=== PATIENT | female | born 1995 | race Caucasian/White ===

== ENCOUNTER 2020-12-20 13:26 | Emergency (ER) | payer BC, SELFPAY ==
--- NOTE | ~2020-12-20 | XR_ITS ---
EXAMINATION: XR finger 1st RT min 2V DATE: 12/20/2020 14:03 INDICATION: Right thumb pain and swelling. TECHNIQUE: 3 views of right thumb were obtained. COMPARISON: None. FINDINGS: Bone alignment is normal. No fracture. Joint spaces are well maintained. IMPRESSION: 1. Normal right thumb. Reviewed, dictated and finalized at location A. IMPRESSION: 1. Normal right thumb.
[2020-12-20 13:41] VITALS: BP 142/80; PULSE 82; RESP 15; TEMP 36.2; O2SAT 100
[2020-12-20 14:03] LABS: Basophils Percent Auto 0.3 % (0.2-1.2); Eosinophils Absolute Auto 0.2 K/mm3 (0-0.3); Eosinophils Percent Auto 2.2 % (0-4.4); Hematocrit 45.3 % (37.0-47.0); Hemoglobin 15.1 g/dL (12.0-15.0); Immature Granulocyte Absolute 0.02 K/mm3 (0.00-0.031); Immature Granulocyte Percent A 0.2 % (0-0.5); Lymphocytes Absolute Auto 1.55 K/mm3 (0.9-3.2); Lymphocytes Percent Auto 17.4 % (18.3-44.2); Mean Corpuscular HGB Conc 33.3 g/dl (32-36); Mean Corpuscular Hemoglobin 30.9 pg (26-34); Mean Corpuscular Volume 92.8 fl (80-100); Mean Platelet Volume 9.6 fl (7.4-10.4); Monocytes Absolute Auto 0.8 K/mm3 (0.1-0.6); Monocytes Percent Auto 8.6 % (2.6-8.5); Neutrophils Absolute Auto 6.3 K/mm3 (1.3-6.7); Neutrophils Percent Auto 71.3 % (45.5-73.1); Platelet Count Result 342 k/mm3 (150-375); Red Blood Count 4.88 M/mm3 (4.2-5.4); Red Cell Distribution Width 12.7 % (11.5-14.5); White Blood Count 8.9 K/mm3 (4.5-10.0)
--- NOTE | 2020-12-20 14:14 | ED.UPPEXIN ---
HPI - Extremity Injury (Upper) General Chief Complaint: Extremity Injury, Upper Stated Complaint: right thumb infection Time Seen by Provider: 12/20/20 13:57 Source: patient Mode of arrival: ambulatory Limitations: no limitations History of Present Illness HPI narrative: Patient complaining of swelling and redness on the tip of her left thumb, and noticed some streaking up to the hand this morning. Patient states that does bite her nails at times. Patient denies any fever or chills. Patient Nu[place] any chest pain or shortness of breath. Related Data Home Medications Medication Instructions Recorded Confirmed No Home Medications 12/20/20 12/20/20 Allergies Allergy/AdvReac Type Severity Reaction Status Date / Time avocado Allergy Itching Verified 12/20/20 14:06 banana Allergy Itching Verified 12/20/20 14:06 cat dander Allergy Itching Verified 12/20/20 14:06 Fish Containing Products Allergy Abdominal Verified 12/20/20 14:06 Pain gluten Allergy Itching Verified 12/20/20 14:06 pollen extracts Allergy Itching Verified 12/20/20 14:06 watermelon Allergy Itching Verified 12/20/20 14:06 Review of Systems Review of Systems: All systems reviewed & are unremarkable except as noted in HPI and below PMFSH Social History Social History Gender identity (if verbalized by the patient): Female Comments Past medical history: None Social history: Non-smoker no EtOH use or drug use Family history: Noncontributory Exam Const: General: no acute distress and alert Orientation/consciousness: patient oriented x3 HENMT: Head: normal to inspection Skin: Other: Erythematous, swollen, tender distal left thumb, with mild streaking Course Vital Signs Vital signs: Vital Signs Temperature 36.2 C L 12/20/20 13:41 Pulse Rate 82 12/20/20 13:41 Respiratory Rate 15 12/20/20 13:41 Blood Pressure 142/80 H 12/20/20 13:41 Pulse Oximetry 100 12/20/20 13:41 Temperature 36.2 C L 12/20/20 13:41 Pulse Rate 82 12/20/20 13:41 Respiratory Rate 15 12/20/20 13:41 Blood Pressure 142/80 H 12/20/20 13:41 Pulse Oximetry 100 12/20/20 13:41 MDM - Extremity Injury (Upper) Lab Data Attestation: I reviewed the patient's lab results. Result diagrams: 12/20/20 13:54 12/20/20 13:54 Labs: Lab Results 12/20/20 12/20/20 12/20/20 Range/Units 13:54 13:54 13:54 WBC 8.9 (4.5-10.0) K/mm3 RBC 4.88 (4.2-5.4) M/mm3 Hgb 15.1 H (12.0-15.0) g/dL Hct 45.3 (37.0-47.0) % MCV 92.8 (80-100) fl MCH 30.9 (26-34) pg MCHC 33.3 (32-36) g/dl RDW 12.7 (11.5-14.5) % Plt Count 342 (150-375) k/mm3 MPV 9.6 (7.4-10.4) fl Immature Gran % (Auto) 0.2 (0-0.5) % Neut % (Auto) 71.3 (45.5-73.1) % Lymph % (Auto) 17.4 L (18.3-44.2) % Snyder % (Auto) 8.6 H (2.6-8.5) % Eos % (Auto) 2.2 (0-4.4) % Baso % (Auto) 0.3 (0.2-1.2) % Lymph # (Auto) 1.55 (0.9-3.2) K/mm3 Snyder # (Auto) 0.8 H (0.1-0.6) K/mm3 Eos # (Auto) 0.2 (0-0.3) K/mm3 Baso # (Auto) 0.0 (0.0-0.1) K/mm3 Abs Immat Gran (auto) 0.02 (0.00-0.031) K/mm3 Absolute Neuts (auto) 6.3 (1.3-6.7) K/mm3 Absolute Nucleated RBC 0.0 (0.0-0.012) K/mm3 Nucleated RBC % 0.0 (0.0-0.2) % Sodium Pending Potassium Pending Chloride Pending Carbon Dioxide Pending Anion Gap Pending BUN Pending Creatinine Pending Estim Creat Clear Calc Pending Estimated GFR Pending Glucose Pending Lactic Acid Pending Calcium Pending Total Bilirubin Pending AST Pending ALT Pending Alkaline Phosphatase Pending Total Protein Pending Albumin Pending Discharge Plan Discharge Clinical Impression: Paronychia of finger of left hand Patient Disposition: Home, Self-Care Condition: Stable Instructions: Antibiotic Form, Paronychia (ED) Additional Instructions: Follow-up with sushil
[2020-12-20 14:17] LABS: Alanine Aminotransferase 22 U/L (4-35); Albumin Level 4.6 g/dL (3.5-5.1); Alkaline Phosphatase 78 U/L (38-126); Anion Gap 8 mmol/L (8-16); Aspartate Amino Transferase 26 U/L (14-36); Bilirubin,Total 0.4 mg/dL (0.2-1.3); Blood Urea Nitrogen 10 mg/dL (7-17); Calcium 9.9 mg/dL (8.4-10.2); Carbon Dioxide 26 mmol/L (22-30); Chloride 108 mmol/L (98-107); Estimated CRCL calculation 125 ml/min; Estimated Glomerular Filt Rate > 60; Glucose 88 mg/dL (65-105); Sodium 142 mmol/L (137-145)
== END 2020-12-20 14:34 | disposition home or self-care (01) ==
LOC: ANHED 14:22
PROVIDERS: Emergency Provider Emergency Medicine
DX: L03.012 Cellulitis of left finger (principal)
CPT/HCPCS: 36415; 73140; 80053; 83605; 85025; 87040; 99283